=== PATIENT | male | born 1940 | race Caucasian/White ===

== ENCOUNTER → 2024-08-07 | Outpatient (CLI) | payer MEDICARE, BC, SELFPAY ==
[2024-08-13 15:37] LABS: PSA, Free 1.38 ng/mL; PSA, Total 5.8 ng/mL (< OR = 4.0)
[2024-08-14 06:56] LABS: PSA, % Free 24 % (calc) (>25)
== END | disposition home or self-care (01) ==
LOC: COPL 12:30
PROVIDERS: PCP Internal Medicine; Referring Provider Urology; Visit Provider Urology
DX: N40.1 Benign prostatic hyperplasia with lower urinary tract symptoms (principal)
CPT/HCPCS: 36415; 84153; 84154

== ENCOUNTER → 2024-10-11 | Outpatient (CLI) | payer MEDICARE, BC, SELFPAY ==
--- NOTE | 2024-10-11 12:00 | XR_ITS ---
Examination: CTA abdomen, with intravenous contrast. CTA pelvis, with intravenous contrast. 2-D sagittal and coronal reconstructions. 3-D reconstructions. Date and time of exam: October 11, 2024 at 1218 hours INDICATIONS: Diagnosis right iliac artery aneurysm, 26 [address] angiogram study October 04, 2023 CTDI vol (mgy) 15 DLP (MGycm) 482 Technique: Multiple CTA images, 2.0 mm slice thickness, obtained abdomen, pelvis, with the high-resolution 64 slice scanner. 100 cc Isovue-370 is administered intravenously. Sagittal and coronal 2-D reconstructions are obtained. 3-D reconstructions, angiographic images are obtained. 3-D postprocessing, including vascular maximum intensity projections. Low dose protocols were performed. One or more of the following dose reduction techniques were used; automated exposure control, adjustment of the mA and/or KV according to patient size, use of iterative reconstruction technique. Findings: No focal liver or splenic lesion No gallstones No pancreatic or adrenal mass No renal or ureteral calculi No bowel obstruction Colonic diverticulosis Normal appendix No diverticulitis Prostatomegaly, AP dimension 4.3 cm with irregular contour No bladder mass Bilateral fat-containing inguinal hernias Infrarenal abdominal aorta measures 24 mm Patent iliac artery stents on the right, aneurysmal dilatation at the bifurcation and external and internal iliac artery on the right 28 x 27 mm compared to 26 x 25 mm on October 04, 2023 IMPRESSION: Patent right iliac artery stents, aneurysm dilatation at the bifurcation and external and internal right iliac artery, measuring 20 x 27 mm compared to 26 x 25 mm in October 04, 2023
== END | disposition home or self-care (01) ==
LOC: CCTX 11:43
PROVIDERS: PCP Internal Medicine; Referring Provider Student in an Organized Health Care Education/Training Program; Visit Provider Student in an Organized Health Care Education/Training Program
DX: I72.8 Aneurysm of other specified arteries (principal)
CPT/HCPCS: 74174; A4649; Q9967

== ENCOUNTER → 2024-11-06 | Outpatient (BNVA) | payer MEDICARE, BC, SELFPAY | END | disposition home or self-care (01) | PROVIDERS: PCP Internal Medicine; Referring Provider Internal Medicine; Visit Provider Urology | DX: N40.1 Benign prostatic hyperplasia with lower urinary tract symptoms (principal); N13.8 Other obstructive and reflux uropathy; N32.81 Overactive bladder; I10 Essential (primary) hypertension; E78.00 Pure hypercholesterolemia, unspecified; E11.9 Type 2 diabetes mellitus without complications; E66.9 Obesity, unspecified; Z68.26 Body mass index [BMI] 26.0-26.9, adult | CPT/HCPCS: 81003; 99212; G0463 ==